=== PATIENT | male | born 1980 | race Caucasian/White ===

== ENCOUNTER 2018-01-23 01:44 | Emergency (ER) | payer BC ==
[~2018-01-23] VITALS: Ht 180.3 cm; Wt 127.0 kg
== END 2018-01-23 02:30 | disposition home or self-care (01) ==
LOC: FSED 01:44
DX: R07.89 Other chest pain (principal); M79.605 Pain in left leg; I10 Essential (primary) hypertension; E11.9 Type 2 diabetes mellitus without complications; E78.00 Pure hypercholesterolemia, unspecified
CPT/HCPCS: 82553; 84484; 93005; 99283

== ENCOUNTER 2018-06-17 00:10 | Observation (INO) | payer BC ==
[2018-06-17] VITALS (7 sets, daily range): BP systolic 100–133; BP diastolic 53–86
[~2018-06-17] VITALS: Ht 177.8 cm; Wt 133.4 kg
--- OUTSIDE RECORDS SUMMARY | 2018-06-17 00:14 | XMS REPORT | Continuity of Care Document ---
Author Author [facility] Interface Address Unknown Phone Unavailable Problems Problem Status Onset Date Classification Date Reported Comments Source Medications Medication Details Route Status Patient Instructions Ordering Provider Order Date Source Allergies, Adverse Reactions, Alerts Substance Category Reaction Severity Reaction type Status Date Reported Comments Source Aspirin Unknown Allergy to Substance Active 01/23/2018 [facility] Immunizations Immunization Date Given Site Status Last Updated Comments Source Results Order Name Results Value Reference Range Date Interpretation Comments Source Vital Signs Vital Sign Value Date Comments Source Encounters Location Location Details Encounter Type Encounter Number Reason For Visit Attending Provider ADM Date DC Date Status Source Departed Emergency Room [id number] EDILMA VERAS MD 01/23/2018 01/23/2018 [facility] Procedures Procedure Code Date Perfomer Comments Source
[2018-06-17] MEDS ORDERED: SODIUM CHLORIDE 0.9% 1000ML 1,000 ML IV STA (00:40)
[2018-06-17] MEDS ORDERED: MORPHINE SULFATE INJ 4 MG/ML INJ 1ML IV STA (00:40)
[2018-06-17] MEDS ORDERED: FAMOTIDINE 20 MG/2 ML VIAL IV ONE (00:45)
[2018-06-17] MEDS ORDERED: ONDANSETRON HCL INJ 2MG/ML 2ML 2 MG/ML VIAL IV PRN ×2 (00:45→01:00)
[2018-06-17] MEDS ORDERED: LACTATED RINGER'S 1,000 ML IV SCH (00:53)
[2018-06-17] MEDS ORDERED: ZOLPIDEM TARTRATE 5 MG TAB PO PRN (01:00)
[2018-06-17] MEDS ORDERED: DEXTROSE 50% SYRINGE 50 ML IV PRN (01:00)
[2018-06-17] MEDS ORDERED: SODIUM CHLORIDE FLUSH 10 ML SYR INJ PRN ×2 (01:00→09:45)
[2018-06-17] MEDS ORDERED: CLONIDINE HCL 0.2 MG TAB PO PRN (01:00)
[2018-06-17] MEDS ORDERED: ACETAMINOPHEN 325 MG TAB PO PRN (01:00)
[2018-06-17] MEDS ORDERED: HYDROCODONE/APAP 7.5MG-325MG 1 EA TAB PO PRN (01:00)
[2018-06-17] MEDS ORDERED: ENALAPRILAT IV INJ 1.25 MG/ML VIAL IV PRN (01:00)
[2018-06-17] MEDS ORDERED: DIPHENHYDRAMINE HCL INJ 50 MG/ML VIAL IV PRN (01:00)
[2018-06-17] MEDS ORDERED: HYDROCODONE/APAP 5MG-325MG TAB PO ONE (01:45)
--- NOTE | 2018-06-17 01:45 | NUR ---
Got report from Stephen from [facility]. Patient came via stretcher. A&Ox3. Ambulates. Call light within reach.
--- NOTE | 2018-06-17 01:48 | Diagnostic Imaging Report ---
EXAMINATION: Chest PA and lateral views INDICATION: Pain and shortness of breath. COMPARISON: None FINDINGS: TUBES and LINES: None. LUNGS: Lungs are well inflated. Lungs are clear. There is no evidence of pneumonia or pulmonary edema. PLEURA: No pleural effusion or pneumothorax. HEART AND MEDIASTINUM: The cardiomediastinal silhouette is unremarkable. BONES AND SOFT TISSUES: No acute osseous lesion. Soft tissues are unremarkable. UPPER ABDOMEN: No free air under the diaphragm. IMPRESSION: No acute thoracic abnormality. Signed by: Dr. Graeme Cornell M.D. on 06/17/2018 1:44 AM
--- NOTE | 2018-06-17 07:05 | NUR ---
Gave report to oncoming nurse. Call light within reach. Patient in bed.
[2018-06-17] MEDS ORDERED: HOME MEDICATION--PATIENTS OWN PO SCH (07:15)
--- NOTE | 2018-06-17 07:17 | NUR ---
pt asleep upon round resp even and unlabored at this time no distress noted, pt easily aroused and able to make needs known, will cont to monitor, wilmer light in reach.
[2018-06-17] MEDS ORDERED: INSULIN REGULAR, HUMAN 100 UNIT/1 ML 3ML VIAL SQ SCH (07:30)
[2018-06-17] MEDS ORDERED: APIXABAN 5 MG TABLET PO SCH (09:00)
[2018-06-17] MEDS ORDERED: FAMOTIDINE 20 MG/2 ML VIAL IV SCH (09:00)
[2018-06-17 09:23] LABS: CREATINE KINASE 201 IU/L (30-200)
--- NOTE | 2018-06-17 10:51 | NUR ---
SOCIAL WORK INITIAL ASSESSMENT Medical Driver to bedside to discuss plan of care with patient/family. CM/SW role and care transitions discussed. Anticipated discharge plan discussed along with duration of care. CM/SW discussed patients right to make decisions in care. CM/SW work hours given. Patient lives: IN HOUSE WITH FAMILY Admit/Transfer: [facility] TRUCK IS STILL THERE POA/Emergency contact: STATES NONE Current/Previous Home Health: NONE PCP/Follow-up Care: YOVANY OLIVA Current/Previous DME: NONE Other Services: NONE Employment Status: [employer] DIRECT[employer] Areas of Concerns: NEEDS TO GET BACK TO TRUCK WILL NEED CAB VOUCHER TO RETURN [facility] Referral Needs: NA Education Needs: NONE IMM/BARRETT given and signed (if applicable): NA Goal for discharge: RETURN HOME BASELINE CM/SW left business card at the bedside with contact information. Name and number was also written on the patients whiteboard. Patient verbalized understanding of discussion. CM will follow-up with ongoing discharge and transition of care needs.
--- NOTE | 2018-06-17 19:49 | Consultation ---
DATE OF CONSULTATION: 06/17/2018 Cardiology consultation REASON FOR CONSULT: Chest pain. CHIEF COMPLAINT: Burning in the chest. HISTORY OF PRESENT ILLNESS: The patient is a 37-year-old man, history of DVT due to his prolonged time of bed rest several months ago, currently on apixaban, history of diabetes, hypertension, and hyperlipidemia, well controlled. He was seen in our clinic with Dr. Ashley Syed. He was scheduled to have outpatient stress test for atypical chest pains as part of workup prior to his clearance for gastric bypass surgery for control of diabetes and promoting weight loss. However, he presented with a burning chest discomfort that started last night around 10 o'clock. He said he felt a sudden burning sensation left side of his chest that went up to his left shoulder and his face, lasted for several hours, was constant and was relieved by pain medicines that were given in the ER, has not experienced this sensation since late last night, currently feels fine. Of note, the patient is fairly active, plays baseball with his son and does not have any exertional symptoms. REVIEW OF SYSTEMS: As above, otherwise negative. PAST MEDICAL HISTORY: 1. Hypertension. 2. Diabetes. 3. Obesity, pending gastric bypass workup. 4. DVT, on Eliquis. SOCIAL HISTORY: The patient does not smoke, drink, or abuse drugs. FAMILY HISTORY: The patient has strong family history of early CAD including maternal grandfather with an HI in his 40s as well as his father with HI in his 40s. OUTPATIENT MEDICATIONS: Reviewed. OBJECTIVE: VITAL SIGNS: Temperature 97.6, pulse 66, respiratory rate 16, blood pressure 116/65, and saturating 99% on room air. GENERAL: Obese white man, in no acute distress. CARDIOVASCULAR: Regular rate and rhythm. No murmurs, rubs, or gallops. LUNGS: Clear to auscultation bilaterally. ABDOMEN: Obese, soft, nontender, nondistended. NEURO AND PSYCH: Alert and oriented to person, place, and time. Normal affect. EXTREMITIES: Warm and well perfused lower extremities without any edema, ulcerations, or varicosities. Palpable bilateral lower extremity pulses. INPATIENT MEDICATIONS: Reviewed. LABORATORY DATA: Reviewed. Cardiac enzymes negative. IMAGING DATA: Reviewed. Chest x-ray shows no cardiopulmonary abnormalities. Telemetry data reviewed, shows normal sinus rhythm. EKG reviewed, essentially normal without any ST changes concerning for ischemia. ASSESSMENT: 1. Atypical chest discomfort. 2. History of deep venous thrombosis, on Eliquis. 3. Hypertension. 4. Hyperlipidemia. 5. Diabetes. PLAN: The patient has been ruled out for acute HI, feels well. EKG is nonischemic. Chest pain is atypical. The patient is already scheduled to get an outpatient stress test tomorrow morning in the office. The patient is okay to be discharged for now, can come to the office tomorrow morning and have his outpatient stress test on as scheduled. He will follow up after the stress test with his primary community pharmacist, Dr. Ashley Syed. Thank you for this consult. We will continue to follow. MD TERENCE Mark/JAVIER /[id number]
== END 2018-06-17 14:22 | disposition home or self-care (01) ==
LOC: FSED 00:10 → ERHOLD 00:58 → IMCU 02:23
PROVIDERS: ADMIT Internal Medicine; ATTEND Internal Medicine
DX: R07.89 Other chest pain (principal); Z86.718 Personal history of other venous thrombosis and embolism; Z79.01 Long term (current) use of anticoagulants; E66.01 Morbid (severe) obesity due to excess calories; Z68.41 Body mass index [BMI] 40.0-44.9, adult; I10 Essential (primary) hypertension; E78.5 Hyperlipidemia, unspecified
CPT/HCPCS: 36415; 71046; 82550; 82553; 82948; 84484; 93005; 99284; G0378; J7030; J7121

== ENCOUNTER 2018-06-28 19:53 | Observation (INO) | payer BC ==
[~2018-06-28] VITALS: Ht 180.3 cm; Wt 131.7 kg
[2018-06-28 11:10] VITALS: BP 110/56
--- OUTSIDE RECORDS SUMMARY | 2018-06-28 19:56 | XMS REPORT ---
[facility] Address Unknown Phone Unavailable Care Team Providers Care Sound Effects Person Name Role Phone ANNIE GALVEZ Unavailable Unavailable Problems This patient has no known problems. Allergies, Adverse Reactions, Alerts This patient has no known allergies or adverse reactions. Medications This patient has no known medications. Results Test Description Test Time Test Comments Text Results Atomic Results Result Comments [facility] 2018-06-17 01:43:00 [place] [address] Patient Name: EDILMA WALLACEN MR #: [id number] : 1980 Age/Sex: 37/M Req #: [id number] [facility] Physician: ANNIE GALVEZ MD Ordered by: DENISE LEIVA MD Report #: [id number] Location: [facility] Room/Bed: [place] [address] Procedure: [id number] HOPD/CXR 2 VIEW - [facility] Exam Date: 06/17/18 Exam Time: 0100 REPORT STATUS: Signed EXAMINATION: Chest PA and lateral views INDICA TION: Pain and shortness of breath. COMPARISON: None FINDINGS: TUBES and LINES: None. LUNGS: Lungs are well inflated. Lungs are clear. There is no evidence of pneumonia or pulmonary edema. PLEURA: No pleural effusion or pneumothorax. HEART AND MEDIASTINUM: The cardiomediastinal silhouette is unremarkable. BONES AND SOFT TISSUES: No acute osseous lesion. Soft tissues are unremarkable. UPPER ABDOMEN: No free air under the diaphragm. IMPRESSION: No acute thoracic abnormality. Signed by: Dr. Graeme Franz M.D. on 06/17/2018 1:44 AM Dictated By: PAPO FRANZ MD, MD 3 Transcribed By: ZEHRA on 06/17/18143 COPY TO: DENISE LEIVA MD
[2018-06-28] MEDS ORDERED: ASPIRIN 81 MG CHEW TAB PO ONE (20:30)
[2018-06-28 20:47] LABS: BASOPHILS # (AUTO) 0.1 (0.0-0.1); BASOPHILS % 0.7 % (0.0-1.0); EOSINOPHILS # (AUTO) 0.1 (0.0-0.4); EOSINOPHILS % 1.5 % (0.0-6.0); HEMATOCRIT 44.9 % (38.2-49.6); HEMOGLOBIN 15.6 g/dL (14.0-18.0); LYMPHOCYTES # (AUTO) 2.1 (1.0-3.2); LYMPHOCYTES % 27.7 % (18.0-39.1); MEAN CORPUSCULAR HEMOGLOBIN 29.4 pg (28-32); MEAN CORPUSCULAR HGB CONC 34.7 g/dL (31-35); MEAN CORPUSCULAR VOLUME 84.6 fL (81-99); MONOCYTES # (AUTO) 0.5 (0.2-0.8); MONOCYTES % 6.5 % (4.4-11.3); NEUTROPHILS # (AUTO) 4.6 (2.1-6.9); NEUTROPHILS % 62.5 % (38.7-80.0); PLATELET COUNT 137 x10e3/uL (140-360); RED BLOOD COUNT 5.31 x10e6/uL (4.3-5.7)
[2018-06-28 20:52] LABS: INR 0.95; PROTHROMBIN TIME 13.2 seconds (11.9-14.5)
[2018-06-28 20:53] LABS: PARTIAL THROMBOPLASTIN TIME 28.5 seconds (23.8-35.5)
[2018-06-28 21:02] LABS: ALANINE AMINOTRANSFERASE 75 IU/L (0-55); ALBUMIN 4.1 g/dL (3.5-5.0); ALBUMIN/GLOBULIN RATIO 1.4 (0.8-2.0); ALKALINE PHOSPHATASE 53 IU/L (40-150); ANION GAP 12.8 mmol/L (8-16); BLOOD UREA NITROGEN 10 mg/dL (7-26); BUN/CREATININE RATIO 10 (6-25); CALCIUM 9.8 mg/dL (8.4-10.2); CARBON DIOXIDE 29 mmol/L (22-29); CHLORIDE 101 mmol/L (98-107); CREATINE KINASE 160 IU/L (30-200); CREATININE, SERUM 0.99 mg/dL (0.72-1.25); EST GLOMERULAR FILTRATION RATE > 60 ML/MIN (60-); GLUCOSE 169 mg/dL (74-118); POTASSIUM 3.8 mmol/L (3.5-5.1); SODIUM 139 mmol/L (136-145)
--- NOTE | 2018-06-28 21:13 | Diagnostic Imaging Report ---
Examination: Single AP view of the chest. COMPARISON: None. INDICATION: Chest pain DISCUSSION: Lines/tubes: None. Lungs: The lungs are well inflated and clear. No pneumonia or pulmonary edema. Pleura: No pleural effusion or pneumothorax. Heart and mediastinum: The heart and the mediastinum are unremarkable. Bones and soft tissues: No acute bony abnormalities. IMPRESSION: 1. No acute cardiopulmonary abnormalities. Signed by: Dr. Ck White M.D. on 06/28/2018 9:09 PM
[2018-06-28] MEDS ORDERED: SODIUM CHLORIDE FLUSH 10 ML SYR INJ PRN (22:15)
[2018-06-28] MEDS: SODIUM CHLORIDE 0.9% 1000ML 1,000 ML IV SCH (22:56)
[2018-06-28 23:00] VITALS: BP 117/69
--- NOTE | 2018-06-28 23:00 | NUR ---
INITIAL ASSESSMENT COMPLETE, VS STABLE, NO C/O CP AT THIS TIME, TELE ON PT, ORIENTED TO ROOM, PAPERWORK SIGNED, TOLD TO CALL FOR NEEDS
[2018-06-29] VITALS (7 sets, daily range): BP systolic 109–133; BP diastolic 54–75
[2018-06-29] MEDS: NITROGLYCERIN 2% OINT 1 GM PKT TOP SCH ×4 (06:00→17:43)
[2018-06-29 06:11] LABS: CREATINE KINASE 109 IU/L (30-200)
[2018-06-29 06:35] LABS: CHOL/HDL RATIO 5.3 (3.9-4.7)
[2018-06-29] MEDS ORDERED: SIMVASTATIN20 MG PO (06:39)
[2018-06-29] MEDS ORDERED: LISINOPRIL5 MG PO (06:39)
--- NOTE | 2018-06-29 06:40 | NUR ---
PT AWAKE, NO DISTRESS NOTED, NO CP NOTED, TELE ON, VS STABLE
--- NOTE | 2018-06-29 07:20 | NUR ---
Rcvd patient in report this am. Patient is awake in bed at this time. No s/s of distress noted. Patient is NPO at this time
[2018-06-29] MEDS: SODIUM CHLORIDE 0.9% 1000ML 1,000 ML IV SCH ×3 (08:00→18:15)
[2018-06-29] MEDS: ACETAMINOPHEN 325 MG TAB PO PRN (09:51)
--- NOTE | 2018-06-29 11:02 | NUR ---
Patient is AAOx3. Patient is NPO at this time. No c/o chest pain. Lung capellan clear to auscultation. Bowel sounds present x4. no edema noted. patient ambulates on his own. Left AC IV in place. IV fluids infusing. Call placed to Dr. mijares for orders regarding heart cath or if we can feed the patient.
[2018-06-29 14:06] LABS: CREATINE KINASE 124 IU/L (30-200)
--- NOTE | 2018-06-29 18:07 | Diagnostic Imaging Report ---
EXAM: CT Chest WITH contrast 06/29/2018 4:30 PM INDICATION: Chest pain. Shortness of breath. Pulmonary embolism. COMPARISON: None TECHNIQUE: Chest was scanned utilizing a multidetector helical scanner from the lung apex through the level of the adrenal glands without administration of IV contrast. Coronal and sagittal reformations were obtained. Routine protocol was performed. IV CONTRAST: 100 mL of Isovue 300 RADIATION DOSE: Total DLP: 665.04 mGy*cm Estimated effective dose: (DLP x 0.014 x size factor) mSv COMPLICATIONS: None FINDINGS: LINES/ TUBES: None. LUNGS AND AIRWAYS: No filling defects within the main pulmonary arteries, as well as lobar and proximal segmental arteries. Distal segmental and subsegmental arteries not well evaluated due to suboptimal opacification. Low-attenuation of posterior lower lobes segmental arteries likely related to suboptimal opacification. Bibasilar dependent atelectasis. Airways are normal. PLEURA: The pleural spaces are clear. HEART AND MEDIASTINUM: The thyroid gland is normal. No mediastinal, hilar or axillary lymphadenopathy. The heart is normal in size.. There is no pericardial effusion. UPPER ABDOMEN: Limited non-contrast views of the upper abdomen show hepatic steatosis.. The adrenal glands are normal. BONES: The visualized bony thorax is within normal limits. SOFT TISSUES: Unremarkable. IMPRESSION: No pulmonary embolus to the proximal segmental level. Signed by: Dr. Graeme Cornell M.D. on 06/29/2018 6:03 PM
--- NOTE | 2018-06-29 19:07 | NUR ---
WALKING ROUNDS PERFORMED, RECEIVED PT LAYING SUPINE ON COUCH. PT REPORTS BED IS NOT COMFORTABLE, PREFERS THE COUCH. PT IS AAOX3, RR EVEN AND NON-LABORED, ON RA. NO S/SX OF DISTRESS NOTED. LEFT PT LAYING SUPINE ON COUCH, CALL LIGHT AND PHONE WITHIN REACH.
[2018-06-29] MEDS ORDERED: SODIUM CHLORIDE 0.9% 50ML 50 ML ONE (19:12)
[2018-06-29] MEDS ORDERED: IOPAMIDOL 370 MG/ML 200 ML INFUS..BTL INJ ONE (19:12)
--- NOTE | 2018-06-29 19:13 | NUR ---
Report given to oncoming shift. Walking rounds done.
--- NOTE | 2018-06-29 19:22 | Consultation ---
DATE OF CONSULTATION: 06/29/2018 Cardiology Consultation INDICATION: Coronary artery disease, unstable angina. HISTORY OF PRESENT ILLNESS: Mr. Monte is a 37-year-old gentleman with history of hypertension and hyperlipidemia, presents with unstable angina and chest pain for the last 24 to 48 hours along with exertional symptoms. He is scheduled for outpatient patient coronary angiogram due to abnormal stress test, however, as his pain worsened he came to the emergency room. PAST MEDICAL HISTORY: 1. Hypertension. 2. Hyperlipidemia. SOCIAL HISTORY: The patient does not smoke nor drink. MEDICATIONS: Reviewed. REVIEW OF SYSTEMS: Negative except as dictated in the history of present illness. ALLERGIES: DRUG ALLERGIES INCLUDE ASPIRIN. PHYSICAL EXAMINATION: VITAL SIGNS: Afebrile, heart rate 64, blood pressure 109/55, O2 saturation 97%. CARDIOVASCULAR: Regular rhythm. No murmurs or gallops. LUNGS: Clear to auscultation bilaterally. ABDOMEN: Soft. Bowel sounds are adequate. EXTREMITIES: Pedal pulse are 2+. LABORATORY DATA: Chest x-ray shows no abnormalities. Cardiac enzymes are negative x2 sets. Serum creatinine is normal. LDL 115. ASSESSMENT: Atypical chest pain. Multiple cardiac risk factors. RECOMMENDATIONS: The patient Mr. Monte has been scheduled for a coronary angiography as an outpatient. We will proceed with this procedure while he is inpatient. Risk, benefits and alternatives were discussed with the patient. Additionally, the patient is having symptoms, which may represent aortic or pulmonary embolic pathology. CT scan of the chest will be obtained today. I thank Dr. Goins for this consult. MD NEISHA Del Cid/JAVIER /[id number]
--- NOTE | 2018-06-29 19:55 | NUR ---
IV TO (L) AC NOTED TO BE TENDER TO PALPATION AND PT REPORTS PAIN WHEN FLUSHED. IV DISCONTINUED. CATHETER TIP INTACT. PRESSURE AND DRESSING APPLIED. NEW IV STARTED TO (R) FA STARTED.
[2018-06-29] MEDS ORDERED: SIMVASTATIN 20 MG TAB PO SCH (21:00)
[2018-06-30] VITALS (14 sets, daily range): BP systolic 100–120; BP diastolic 59–87
[2018-06-30] MEDS: NITROGLYCERIN 2% OINT 1 GM PKT TOP SCH ×3 (00:47→11:44)
[2018-06-30] MEDS: ACETAMINOPHEN 325 MG TAB PO PRN (00:47)
[2018-06-30] MEDS: SODIUM CHLORIDE 0.9% 1000ML 1,000 ML IV SCH ×3 (03:29→14:15)
--- NOTE | 2018-06-30 07:24 | NUR ---
Rcvd patient in report this am. Patient is asleep in bed at this time. Patient is NPO at this time.
[2018-06-30] MEDS ORDERED: LISINOPRIL 10 MG TAB PO SCH (09:00)
--- NOTE | 2018-06-30 09:01 | NUR ---
Patient c/o IV site. Noted small redness but no pain when flushed. Patient requesting a new IV.
[2018-06-30] MEDS ORDERED: VERAPAMIL HCL 2.5 MG/ML 2 ML VIAL ONE (12:44)
[2018-06-30] MEDS ORDERED: HEPARIN SOD (PORCINE) 1000 UNIT/ML 30ML ONE (12:44)
[2018-06-30] MEDS ORDERED: IOPAMIDOL 370 MG/ML 200 ML INFUS..BTL INJ ONE (12:45)
[2018-06-30] MEDS ORDERED: LIDOCAINE HCL 2% LOCAL 20 ML VIAL ONE (12:45)
[2018-06-30] MEDS ORDERED: NITROGLYCERIN/D5W 200 MCG/ML 250 ML ONE (12:45)
[2018-06-30] MEDS ORDERED: MIDAZOLAM HCL 2 MG/2 ML VIAL ONE ×2 (12:45→15:27)
[2018-06-30] MEDS ORDERED: HEPARIN SOD/SOD CHLORIDE 2,000 ML ONE (12:45)
[2018-06-30] MEDS ORDERED: FENTANYL CITRATE/PF 100MCG/2 ML INJ ONE (12:45)
--- NOTE | 2018-06-30 13:45 | NUR ---
Patient is very upset at this time that he has not been taken for his procedure. Call placed to nurse facility maintenance manager and she talked to patient and recyclable products sorter.
[2018-06-30] MEDS ORDERED: SODIUM CHLORIDE 0.9% 1000ML 1,000 ML ONE (13:48)
--- NOTE | 2018-06-30 14:34 | NUR ---
Patient going to label designer at this time.
--- NOTE | 2018-06-30 15:57 | NUR ---
1557 Received pt labor supervisor recovery rm #[id number] [facility] no fix DSr Ospina Rt TR band approach ok to titrate at 1645 and dc home tonight Back to baseline orientation Resp regular. 97% RA. Abdomen soft and non tender denies necessity to defecate or urinate. Iv infusing w/o s/s infiltration. Celeste arrington bedside [phone] Served diet tray tolerated well. 1645 Titration started 12cc Tr band -2cc till completed and Coban dressing with sterile 2x2 in place and arm splint on. Aware of precautions and plan of care. Does have copies sign teaching tools and diagram heart procedure. 174 Phone report to Sandie rm 112 nurse ok for dc tonight per MD NO gross signs of pain pallor pressure or dysrhythmia. ds/rn
--- NOTE | 2018-06-30 18:04 | NUR ---
Patient returned from lab manager at this time. Right wrist in a splint and coban. No bleeding noted. Radial pulse palpated. No c/o pain
--- NOTE | 2018-06-30 18:10 | NUR ---
IV removed at this time. Pressure dressing applied.
--- NOTE | 2018-06-30 18:20 | NUR ---
Patient discharged from facility to home. Patient assisted out via staff. Reviewed discharge paperwork, follow up appts and no RX's given.
[2018-06-30] MEDS ORDERED: APIXABAN 5 MG TABLET PO SCH (21:00)
--- NOTE | 2018-06-30 22:53 | Operative Report ---
DATE OF PROCEDURE: 06/30/2018 SURGEON: John Ospina MD Cardiac Catheterization Report INDICATION FOR PROCEDURE: Chest pain and positive stress test. PREPROCEDURE ASSESSMENT: The risks, the benefits, and the alternatives to the treatment were explained to the patient prior to the procedure. The patient's medical history, social history, and prior experience with anesthesia was reviewed. Prior to the procedure, the patient was deemed to be an appropriate candidate for moderate sedation. Informed consent was obtained and documented as in the medical record. MEDICATIONS: Please see nursing notes for medications administered during the procedure. PROCEDURES PERFORMED: 1. Coronary angiography. 2. Left heart catheterization. PROCEDURE DETAILS: The patient was brought to the cardiac catheterization laboratory in a fasting state. Right wrist was prepped and draped in a sterile fashion. Modified Seldinger technique was used to insert a 6-Congolese slender sheath into the right radial artery. Coronary angiography and left heart catheterization was performed using Cathy radial catheter. Multiple orthogonal views for each coronary artery were taken. All catheters were removed over a wire. Arteriotomy site was closed using TR band. The case ended without any complications. SIGNIFICANT FINDINGS: Left main large caliber, no CAD. LAD, large caliber goes to the apex, one large diagonal branch. Mid LAD has about a 2 cm area of bridging with significant systolic collapse. Ramus intermedius is a medium-sized vessel. No significant CAD. Left circumflex, large nondominant circ. No significant CAD. RCA, large dominant RCA with medium-size RPDA and small RPL system distally. No significant CAD. Left heart catheterization, LV end-diastolic pressure of 20 mmHg. No gradient across the aortic valve on pullback. ESTIMATED BLOOD LOSS: 20 mL. COMPLICATIONS: None. SPECIMEN REMOVED: None. GRAFTS AND IMPLANTS: None. FINAL RECOMMENDATIONS: 1. TR band deflation protocol starting at 30 minutes. 2. Continue optimal medical therapy and risk factor control. 3. Follow up in clinic with Dr. Syed, his primary shrimper in 1-2 weeks post procedure. John Ospina MD KVP/MODL /[id number]
== END 2018-06-30 18:19 | disposition home or self-care (01) ==
LOC: ER 19:53 → ERHOLD 22:18 → MED/SURG 23:02
PROVIDERS: ADMIT Internal Medicine; ATTEND Internal Medicine
DX: R07.89 Other chest pain (principal); I10 Essential (primary) hypertension; E11.9 Type 2 diabetes mellitus without complications; E78.5 Hyperlipidemia, unspecified; Z86.718 Personal history of other venous thrombosis and embolism; Z79.01 Long term (current) use of anticoagulants; Z83.3 Family history of diabetes mellitus; Z82.49 Family history of ischemic heart disease and other diseases of the circulatory system; E78.00 Pure hypercholesterolemia, unspecified; Z88.8 Allergy status to other drugs, medicaments and biological substances
CPT/HCPCS: 36415 ×3; 71045; 71260; 80053; 80061; 82550 ×2; 82553 ×2; 82948 ×2; 84484 ×2; 85025; 85610; 85730; 93005; 93458; 99284; C1887; G0378 ×3; J1644; J2001; J2250; J7030 ×3; Q9967 ×2